=== PATIENT | female | born 1965 | race Caucasian/White ===

== ENCOUNTER 2018-10-14 09:50 | Emergency (ER) | payer OTHER ==
[~2018-10-14] VITALS: Ht 157.5 cm; Wt 74.8 kg
[~2018-10-14 09:50] MED LIST: CALTRATE 600 W-1 TAB; CATAFLAM50 MG PO; CEFADROXIL500 MG PO; FLEXERIL10 MG; HYDROCHLOROTHIA25 MG; NAPROXEN500 M1
[2018-10-14] MEDS ORDERED: LISINOPRIL2.5 MG (09:59)
[2018-10-14] MEDS ORDERED: SKELAXIN800 MG PO (12:03)
== END 2018-10-14 12:09 | disposition home or self-care (01) ==
LOC: ER 09:50
DX: M54.5 Low back pain (principal)